=== PATIENT | male | born 1975 | race Caucasian/White ===

== ENCOUNTER 2016-12-18 12:55 | Emergency (ER) | payer BC ==
--- NOTE | 2016-12-18 12:58 | EDM.PDOC ---
ED HPI GENERAL MEDICAL PROBLEM - General Stated Complaint: SOMETHING IN RIGHT EYE Time Seen by Provider: 12/18/16 12:57 Source of Information: Reports: Patient - History of Present Illness INITIAL COMMENTS - FREE TEXT/NARRATIVE: HISTORY AND PHYSICAL: History of present illness: [] Patient complains of foreign body sensation right eye since yesterday, he was doing some grinding, no light sensitivity double vision spots floaters or visual change No fever nausea vomiting chills sweats Review of systems: As per history of present illness and below otherwise all systems reviewed and negative. Past medical history: As per history of present illness and as reviewed below otherwise noncontributory. Surgical history: As per history of present illness and as reviewed below otherwise noncontributory. Social history: No reported history of drug or alcohol abuse. Family history: As per history of present illness and as reviewed below otherwise noncontributory. Physical exam: HEENT: Atraumatic, normocephalic, pupils reactive, negative for conjunctival pallor or scleral icterus, mucous membranes moist, throat clear, neck supple, nontender, trachea midline. Left eye within normal limits, right eye injected sclera there is a couple of metal flakes superficial were easily removed with a cotton tip applicator, and appears to also be a remnant of an embedded metallic flake no hyphema, and was able to remove most of the embedded debris, which was retracted no foreign body appreciated on lid, Lungs: Clear to auscultation, breath sounds equal bilaterally, chest nontender. Heart: S1S2, regular, negative for clicks, rubs, or JVD. Abdomen: Soft, nondistended, nontender. Negative for masses or hepatosplenomegaly. Negative for costovertebral tenderness. Pelvis: Stable nontender. Genitourinary: Deferred. Rectal: Deferred. Extremities: Atraumatic, negative for cords or calf pain. Neurovascular unremarkable. Neuro: Awake, alert, oriented. Cranial nerves II through XII unremarkable. Cerebellum unremarkable. Motor and sensory unremarkable throughout. Exam nonfocal. Diagnostics: [] Wood's lamp fluorescein Therapeutics: [] Tetanus status up-to-date per patient Erythromycin ointment Erythromycin suspension Followup with ophthalmology in the a.m. for recheck with slit lamp Impression: [] Multiple foreign bodies removed from right eye 2 free-floating superficial foreign bodies consistent with metallic flake One embedded with at least partial removal , there still is a very small remnant embedded at 12:00 on the edge iris Definitive disposition and diagnosis as appropriate pending reevaluation and review of above. Right Eye Pain Score (Numeric/FACES): 3 - Related Data Allergies Allergy/AdvReac Type Severity Reaction Status Date / Time amoxicillin Allergy Hives Verified 12/18/16 13:13 Home Meds: Home Meds . [No Known Home Meds] 12/18/16 [History] ED ROS GENERAL - Review of Systems Review Of Systems: ROS reveals no pertinent complaints other than HPI. ED EXAM, GENERAL - Physical Exam Exam: See Below Course - Vital Signs Last Recorded V/S: Last Vital Signs Temp 36.3 C 12/18/16 13:09 Pulse 75 12/18/16 13:09 Resp 18 12/18/16 13:09 BP 161/101 H 12/18/16 13:09 Pulse Ox 97 12/18/16 13:09 - Orders/Labs/Meds Orders: Active Orders 24 hr Category Date Time Status Erythromycin Base [Erythromycin 0.5% Ophth Oint] Med 12/18/16 13:38 Once 1 gm EYEBOTH ONETIME ONE Meds: Medications Discontinued Medications Generic Name Dose Route Start Last Admin Trade Name Freq PRN Reason Stop Dose Admin Proparacaine HCl 1 ml 12/18/16 13:21 12/18/16 13:35 Proparacaine 0.5% Ophth Soln EYERT 12/18/16 13:22 2 drop NOW STA Administration Departure - Departure Time of Disposition: 13:44 Disposition: Home, Self-Care 01 Condition: good Clinical Impression: Foreign body Additional Instructions: In followup with ophthalmology in the morning at [facility] for slit lamp exam as I believe there may be a small remnant still embedded, 2 superficial foreign bodies were removed as well as most if not all of the embedded material. Again as discussed, to prevent rust formation and visual complications, evaluation with ophthalmology with slit lamp to ensure that all the material has been removed tomorrow morning Erythromycin ointment 4 times daily x5 days [address] [id number] The following information is given to patients seen in the emergency department who are being discharged to home. This information is to outline your options for follow-up care. We provide all patients seen in our emergency department with a follow-up referral. The need for follow-up, as well as the timing and circumstances, are variable depending upon the specifics of your emergency department visit. If you don't have a primary care physician on staff, we will provide you with a referral. We always advise you to contact your personal physician following an emergency department visit to inform them of the circumstance of the visit and for follow-up with them and/or the need for any referrals to a consulting specialist. The emergency department will also refer you to a specialist when appropriate. This referral assures that you have the opportunity for follow-up care with a specialist. All of these measure are taken in an effort to provide you with optimal care, which includes your follow-up. Under all circumstances we always encourage you to contact your private physician who remains a resource for coordinating your care. When calling for follow-up care, please make the office aware that this follow-up is from your recent emergency room visit. If for any reason you are refused follow-up, please contact the [facility] emergency department at and asked to speak to the emergency department charge nurse. - My Orders Last 24 Hours: My Active Orders 12/18/16 13:38 Erythromycin Base [Erythromycin 0.5% Ophth Oint] 1 gm EYEBOTH ONETIME ONE - Assessment/Plan Last 24 Hours: My Active Orders 12/18/16 13:38 Erythromycin Base [Erythromycin 0.5% Ophth Oint] 1 gm EYEBOTH ONETIME ONE
[2016-12-18] MEDS ORDERED: Proparacaine 0.5% Ophth Soln 15 ML Bottle EYERT STA (13:21)
[2016-12-18] MEDS ORDERED: Erythromycin Base 0.5% Ophth Oint 1 GM Tube EYEBOTH ONE (13:38)
[2016-12-18 14:19] VITALS: BP 163/97
== END 2016-12-18 13:59 | disposition home or self-care (01) ==
LOC: MW.ED 12:55
DX: T15.82XA Foreign body in other and multiple parts of external eye, left eye, initial encounter (principal); Z88.1 Allergy status to other antibiotic agents
CPT/HCPCS: 65220; 99283; A9270